=== PATIENT | female | born 1955 | race African-American/Black ===

== ENCOUNTER 2018-10-11 21:41 | Inpatient (IN) | payer OTHER ==
[~2018-10-11] VITALS: Ht 160 cm; Wt 99.8 kg
[2018-10-11] MEDS ORDERED: SODIUM CHLORIDE 0.9% 1,000 ML IV ONE (22:49)
[2018-10-12] VITALS (81 sets, daily range): BP systolic 81–189; BP diastolic 39–104
[2018-10-12 00:09] LABS: BASOPHILS % 0.2 % (0.0-2.0); HEMATOCRIT. 39.3 % (36.0-48.0); HEMOGLOBIN. 12.8 g/dL (12.0-16.0); LYMPHOCYTES % 11.7 % (20.0-50.0); MEAN CORPUSCULAR HEMOGLOBIN 23.9 pg (28.0-32.0); MEAN CORPUSCULAR VOLUME 73.8 fL (81.0-99.0); MEAN PLATELET VOLUME 9.5 fl (7.4-10.4); MONOCYTES % 4.2 % (2.0-8.0); NEUTROPHILS % 83.9 % (40.0-76.0); PLATELET 193 x1000/uL (130-400); RED BLOOD CELL COUNT 5.33 mill/uL (4.2-5.4); RED CELL DISTRIBUTION WIDTH 15.4 % (11.6-14.6)
[2018-10-12 00:11] LABS: CHLORIDE 107 mEq/L (98-107)
[2018-10-12] MEDS ORDERED: NICARDIPINE 100 MG in SODIUM CHLORIDE 0.9% 60 ML IV ONE (01:00)
[2018-10-12] MEDS ORDERED: LEVETIRACETAM 500MG PREMIX 100 ML IV ONE (01:00)
[2018-10-12] MEDS ORDERED: MANNITOL 20% 250 ML IV ONE (01:15)
[2018-10-12 01:22] LABS: INR 1.1; PARTIAL THROMBOPLASTIN TIME 27.5 sec (23.4-31.0); PROTHROMBIN TIME 10.8 sec (9.1-11.1)
[2018-10-12] MEDS ORDERED: MANNITOL 20% 250 ML IV NR (02:00)
[2018-10-12] MEDS ORDERED: LABETALOL 5MG/ML SYR 20 MG/4 ML SYRINGE IV ONE (02:15)
[2018-10-12] MEDS ORDERED: MORPHINE SULFATE 2 MG/ML CPJ (NOT FOR IM USE) IV ONE (02:15)
[2018-10-12] MEDS ORDERED: ONDANSETRON HCL 4MG/2ML INJ IV ONE (02:15)
[2018-10-12] MEDS ORDERED: DIPHENHYDRAMINE 50MG/ML VIAL IV PRN (03:45)
[2018-10-12] MEDS ORDERED: ACETAMINOPHEN 650MG SUPP PR PRN (03:45)
[2018-10-12] MEDS ORDERED: ONDANSETRON HCL 4MG/2ML INJ IV PRN (03:45)
[2018-10-12] MEDS ORDERED: NICARDIPINE 50 MG in SODIUM CHLORIDE 0.9% 230 ML IV PRN (05:15)
[2018-10-12] MEDS ORDERED: DEXT 5%/0.45% NACL 1000ML 1,000 ML IV SCH (06:00)
[2018-10-12] MEDS ORDERED: LEVETIRACETAM 500 MG in SODIUM CHLORIDE 0.9% 100 ML IV SCH (06:00)
[2018-10-12] MEDS: DEXAMETHASONE 4MG/ML 1ML VIAL IV SCH ×4 (06:06→23:26)
[2018-10-12] MEDS: DEXT 5%/LACTATED RINGERS 1,000 ML IV SCH (06:06)
[2018-10-12] MEDS: FAMOTIDINE 20MG/2ML VIAL IV SCH ×2 (08:17→21:08)
[2018-10-12] MEDS: MORPHINE SULFATE 4 MG/ML CPJ (NOT FOR IM USE) IV PRN ×3 (08:20→21:15)
[2018-10-12] MEDS: NITROPRUSSIDE 50 MG in SODIUM CHLORIDE 0.9% 248 ML IV PRN (08:58)
[2018-10-12] MEDS ORDERED: IPRATROPIUM/ALBUTEROL 0.5-3(2.5)MG/3ML NEB HHN PRN (09:15)
[2018-10-12] MEDS: LEVETIRACETAM 500 MG in SODIUM CHLORIDE 0.9% 100 ML IV SCH ×2 (09:34→21:08)
[2018-10-12] MEDS: FLUTICASONE PROPIONATE 50MCG/SPRAY BOTTLE BOTHNSTRLS SCH ×2 (11:34→21:09)
[2018-10-12] MEDS: NYSTATIN POWDER 15GM TOP SCH ×3 (11:43→20:00)
[2018-10-12] MEDS: IPRATROPIUM/ALBUTEROL 0.5-3(2.5)MG/3ML NEB HHN SCH ×3 (12:37→19:52)
[2018-10-12] MEDS: ACETYLCYSTEINE 100MG/ML 10% VIAL 4ML INH SCH (12:37)
[2018-10-13] VITALS (99 sets, daily range): BP systolic 81–175; BP diastolic 42–109
[2018-10-13] MEDS: ACETYLCYSTEINE 100MG/ML 10% VIAL 4ML INH SCH ×3 (00:27→18:30)
[2018-10-13] MEDS: IPRATROPIUM/ALBUTEROL 0.5-3(2.5)MG/3ML NEB HHN SCH ×6 (00:27→20:58)
[2018-10-13] MEDS: DEXT 5%/LACTATED RINGERS 1,000 ML IV SCH (02:26)
[2018-10-13] MEDS: MORPHINE SULFATE 4 MG/ML CPJ (NOT FOR IM USE) IV PRN ×3 (05:20→14:08)
[2018-10-13] MEDS: DEXAMETHASONE 4MG/ML 1ML VIAL IV SCH ×3 (05:20→17:54)
[2018-10-13 05:57] LABS: BASOPHILS % 0.2 % (0.0-2.0); HEMATOCRIT. 38.4 % (36.0-48.0); HEMOGLOBIN. 12.4 g/dL (12.0-16.0); LYMPHOCYTES % 7.6 % (20.0-50.0); MEAN CORPUSCULAR HEMOGLOBIN 23.8 pg (28.0-32.0); MEAN CORPUSCULAR VOLUME 73.9 fL (81.0-99.0); MEAN PLATELET VOLUME 9.7 fl (7.4-10.4); MONOCYTES % 4.1 % (2.0-8.0); NEUTROPHILS % 88.1 % (40.0-76.0); PLATELET 187 x1000/uL (130-400); RED CELL DISTRIBUTION WIDTH 15.3 % (11.6-14.6)
[2018-10-13 06:01] LABS: CHLORIDE 110 mEq/L (98-107)
[2018-10-13] MEDS: NITROPRUSSIDE 50 MG in SODIUM CHLORIDE 0.9% 248 ML IV PRN ×2 (06:38→20:48)
[2018-10-13] MEDS: FLUTICASONE PROPIONATE 50MCG/SPRAY BOTTLE BOTHNSTRLS SCH ×2 (08:51→20:26)
[2018-10-13] MEDS: NYSTATIN POWDER 15GM TOP SCH ×3 (08:52→17:55)
[2018-10-13] MEDS: FAMOTIDINE 20MG/2ML VIAL IV SCH ×2 (08:52→20:26)
[2018-10-13] MEDS: LEVETIRACETAM 500 MG in SODIUM CHLORIDE 0.9% 100 ML IV SCH ×2 (08:53→20:48)
[2018-10-13] MEDS ORDERED: HYDROCODONE/ACETAMINOPHEN 5/325MG TABLET PO PRN (21:15)
[2018-10-13] MEDS: NIFEDIPINE XL 60MG TAB PO SCH (21:50)
[2018-10-14] VITALS (101 sets, daily range): BP systolic 91–193; BP diastolic 38–111
[2018-10-14] MEDS: DEXAMETHASONE 4MG/ML 1ML VIAL IV SCH ×4 (00:10→18:06)
[2018-10-14] MEDS: ACETYLCYSTEINE 100MG/ML 10% VIAL 4ML INH SCH ×3 (00:29→17:06)
[2018-10-14] MEDS: IPRATROPIUM/ALBUTEROL 0.5-3(2.5)MG/3ML NEB HHN SCH ×6 (00:29→20:32)
[2018-10-14] MEDS: MORPHINE SULFATE 4 MG/ML CPJ (NOT FOR IM USE) IV PRN ×3 (01:52→15:53)
[2018-10-14] MEDS: FLUTICASONE PROPIONATE 50MCG/SPRAY BOTTLE BOTHNSTRLS SCH ×2 (07:57→20:58)
[2018-10-14] MEDS: FAMOTIDINE 20MG/2ML VIAL IV SCH ×2 (07:58→20:58)
[2018-10-14] MEDS: NYSTATIN POWDER 15GM TOP SCH ×3 (07:58→18:07)
[2018-10-14] MEDS: LEVETIRACETAM 500 MG in SODIUM CHLORIDE 0.9% 100 ML IV SCH ×2 (07:58→20:58)
[2018-10-14] MEDS: NIFEDIPINE XL 60MG TAB PO SCH (08:14)
[2018-10-14] MEDS: HYDRALAZINE 20MG/ML VIAL IV PRN (08:39)
[2018-10-14] MEDS: NITROPRUSSIDE 50 MG in SODIUM CHLORIDE 0.9% 248 ML IV PRN (13:19)
[2018-10-14] MEDS: HYDRALAZINE HCL 100MG TABLET PO SCH ×2 (14:44→21:08)
[2018-10-14] MEDS: LOSARTAN POTASSIUM 50 MG TABLET PO SCH (14:44)
[2018-10-15] VITALS (45 sets, daily range): BP systolic 94–177; BP diastolic 40–123
[2018-10-15] MEDS: IPRATROPIUM/ALBUTEROL 0.5-3(2.5)MG/3ML NEB HHN SCH ×7 (00:08→23:57)
[2018-10-15] MEDS: ACETYLCYSTEINE 100MG/ML 10% VIAL 4ML INH SCH ×4 (00:08→23:57)
[2018-10-15] MEDS: DEXAMETHASONE 4MG/ML 1ML VIAL IV SCH ×5 (00:17→23:03)
[2018-10-15] MEDS: MORPHINE SULFATE 4 MG/ML CPJ (NOT FOR IM USE) IV PRN (03:11)
[2018-10-15] MEDS: HYDRALAZINE HCL 100MG TABLET PO SCH ×2 (06:00→13:43)
[2018-10-15] MEDS: FAMOTIDINE 20MG/2ML VIAL IV SCH ×2 (08:43→21:27)
[2018-10-15] MEDS: NYSTATIN POWDER 15GM TOP SCH ×3 (08:43→18:11)
[2018-10-15] MEDS: FLUTICASONE PROPIONATE 50MCG/SPRAY BOTTLE BOTHNSTRLS SCH (08:43)
[2018-10-15] MEDS: LOSARTAN POTASSIUM 50 MG TABLET PO SCH (08:44)
[2018-10-15] MEDS: LEVETIRACETAM 500 MG in SODIUM CHLORIDE 0.9% 100 ML IV SCH ×2 (08:44→21:27)
[2018-10-15] MEDS: NIFEDIPINE XL 60MG TAB PO SCH (08:44)
[2018-10-15] MEDS: HYDRALAZINE 20MG/ML VIAL IV PRN (22:56)
[2018-10-16] VITALS (29 sets, daily range): BP systolic 86–167; BP diastolic 58–111
[2018-10-16] MEDS: CLONIDINE 0.2MG TABLET PO PRN ×2 (02:40→18:26)
[2018-10-16] MEDS: IPRATROPIUM/ALBUTEROL 0.5-3(2.5)MG/3ML NEB HHN SCH ×5 (04:06→20:58)
[2018-10-16] MEDS: DEXAMETHASONE 4MG/ML 1ML VIAL IV SCH ×3 (05:54→17:33)
[2018-10-16] MEDS: ACETYLCYSTEINE 100MG/ML 10% VIAL 4ML INH SCH ×3 (08:09→21:01)
[2018-10-16] MEDS: FAMOTIDINE 20MG/2ML VIAL IV SCH ×2 (10:22→20:39)
[2018-10-16] MEDS: LOSARTAN POTASSIUM 50 MG TABLET PO SCH (10:22)
[2018-10-16] MEDS: NIFEDIPINE XL 60MG TAB PO SCH (10:23)
[2018-10-16] MEDS: NYSTATIN POWDER 15GM TOP SCH ×3 (10:23→17:33)
[2018-10-16] MEDS: LEVETIRACETAM 500 MG in SODIUM CHLORIDE 0.9% 100 ML IV SCH ×2 (10:24→20:39)
[2018-10-16] MEDS: HYDRALAZINE HCL 50MG TABLET NG SCH ×2 (13:36→23:00)
[2018-10-17] VITALS (8 sets, daily range): BP systolic 125–189; BP diastolic 72–102
[2018-10-17] MEDS: DEXAMETHASONE 4MG/ML 1ML VIAL IV SCH ×4 (00:35→17:27)
[2018-10-17] MEDS: IPRATROPIUM/ALBUTEROL 0.5-3(2.5)MG/3ML NEB HHN SCH ×5 (00:43→17:37)
[2018-10-17] MEDS: CLONIDINE 0.2MG TABLET PO PRN (04:11)
[2018-10-17] MEDS: HYDRALAZINE HCL 50MG TABLET NG SCH ×3 (06:22→21:16)
[2018-10-17] MEDS: NIFEDIPINE XL 60MG TAB PO SCH (08:50)
[2018-10-17] MEDS: FAMOTIDINE 20MG/2ML VIAL IV SCH ×2 (08:50→21:16)
[2018-10-17] MEDS: LOSARTAN POTASSIUM 50 MG TABLET PO SCH (08:50)
[2018-10-17] MEDS: NYSTATIN POWDER 15GM TOP SCH ×3 (08:54→17:27)
[2018-10-17] MEDS: ACETYLCYSTEINE 100MG/ML 10% VIAL 4ML INH SCH ×2 (09:25→14:00)
[2018-10-17] MEDS: LEVETIRACETAM 500 MG in SODIUM CHLORIDE 0.9% 100 ML IV SCH ×2 (10:53→21:16)
[2018-10-17] MEDS ORDERED: HYDRALAZINE 10 MG in SODIUM CHLORIDE 0.9% 49.5 ML IV PRN (15:15)
[2018-10-17] MEDS ORDERED: TRAV2.5D EACHEYE (19:01)
[2018-10-17] MEDS ORDERED: BRIN8DRO EACHEYE (19:01)
[2018-10-18] VITALS: BP 136/76
[2018-10-18] MEDS: IPRATROPIUM/ALBUTEROL 0.5-3(2.5)MG/3ML NEB HHN SCH ×6 (00:09→20:16)
[2018-10-18] MEDS: DEXAMETHASONE 4MG/ML 1ML VIAL IV SCH ×3 (00:15→12:12)
[2018-10-18] MEDS: CLONIDINE 0.2MG TABLET PO PRN (04:07)
[2018-10-18] MEDS: HYDRALAZINE HCL 50MG TABLET NG SCH ×2 (05:58→13:09)
[2018-10-18 05:59] VITALS: BP 121/68
[2018-10-18 08:00] VITALS: BP 144/81
[2018-10-18] MEDS: NIFEDIPINE XL 60MG TAB PO SCH (09:08)
[2018-10-18] MEDS: LEVETIRACETAM 500 MG in SODIUM CHLORIDE 0.9% 100 ML IV SCH (09:08)
[2018-10-18] MEDS: LOSARTAN POTASSIUM 50 MG TABLET PO SCH ×2 (09:08→18:27)
[2018-10-18] MEDS: NYSTATIN POWDER 15GM TOP SCH ×3 (09:09→17:00)
[2018-10-18] MEDS: FAMOTIDINE 20MG/2ML VIAL IV SCH (09:26)
[2018-10-18 12:00] VITALS: BP 145/81
[2018-10-18 16:00] VITALS: BP 127/73
[2018-10-18] MEDS: LEVETIRACETAM 500MG/5ML CUP PO SCH (18:26)
[2018-10-18 20:00] VITALS: BP 157/94
[2018-10-18] MEDS: FAMOTIDINE 20MG TABLET PO SCH (21:12)
[2018-10-18] MEDS: DEXAMETHASONE 4MG TABLET PO SCH (21:12)
[2018-10-18] MEDS: HYDRALAZINE HCL 25MG TABLET NG SCH (21:20)
[2018-10-18] MEDS: LATANOPROST 0.005% OPHTH DROPS 2.5ML BOTHEYE SCH (23:12)
[2018-10-18] MEDS: BRIMONIDINE 0.2% OPHTH DROPS 5ML BOTHEYE SCH (23:12)
[2018-10-18] MEDS: DORZOLAMIDE 2% OPHTH 10 ML BOTTLE BOTHEYE SCH (23:12)
[2018-10-19] VITALS (7 sets, daily range): BP systolic 126–165; BP diastolic 65–88
[2018-10-19] MEDS: IPRATROPIUM/ALBUTEROL 0.5-3(2.5)MG/3ML NEB HHN SCH ×6 (00:25→21:13)
[2018-10-19] MEDS: HYDRALAZINE HCL 25MG TABLET NG SCH ×3 (05:33→21:42)
[2018-10-19] MEDS: NIFEDIPINE XL 60MG TAB PO SCH (08:34)
[2018-10-19] MEDS: ATENOLOL 50 MG TABLET PO SCH (08:34)
[2018-10-19] MEDS: LEVETIRACETAM 500MG/5ML CUP PO SCH ×2 (08:34→21:24)
[2018-10-19] MEDS: LOSARTAN POTASSIUM 50 MG TABLET PO SCH ×2 (08:34→16:56)
[2018-10-19] MEDS: FAMOTIDINE 20MG TABLET PO SCH ×2 (08:34→21:23)
[2018-10-19] MEDS: BRIMONIDINE 0.2% OPHTH DROPS 5ML BOTHEYE SCH ×2 (08:34→21:23)
[2018-10-19] MEDS: DEXAMETHASONE 4MG TABLET PO SCH (08:34)
[2018-10-19] MEDS: DORZOLAMIDE 2% OPHTH 10 ML BOTTLE BOTHEYE SCH ×2 (08:34→21:23)
[2018-10-19] MEDS: NYSTATIN POWDER 15GM TOP SCH ×3 (08:35→16:56)
[2018-10-19] MEDS: ATORVASTATIN CALCIUM 10MG TABLET PO SCH (21:23)
[2018-10-19] MEDS: LATANOPROST 0.005% OPHTH DROPS 2.5ML BOTHEYE SCH (21:24)
[2018-10-20] VITALS: BP 136/81
[2018-10-20] MEDS: IPRATROPIUM/ALBUTEROL 0.5-3(2.5)MG/3ML NEB HHN SCH ×6 (00:50→21:37)
[2018-10-20 04:00] VITALS: BP 156/80
[2018-10-20] MEDS: HYDRALAZINE HCL 25MG TABLET NG SCH ×3 (07:01→21:15)
[2018-10-20 08:00] VITALS: BP 138/81
[2018-10-20] MEDS: LOSARTAN POTASSIUM 50 MG TABLET PO SCH ×2 (08:54→18:30)
[2018-10-20] MEDS: DORZOLAMIDE 2% OPHTH 10 ML BOTTLE BOTHEYE SCH ×2 (08:54→21:16)
[2018-10-20] MEDS: BRIMONIDINE 0.2% OPHTH DROPS 5ML BOTHEYE SCH ×2 (08:54→21:16)
[2018-10-20] MEDS: LEVETIRACETAM 500MG/5ML CUP PO SCH ×2 (08:54→21:15)
[2018-10-20] MEDS: FAMOTIDINE 20MG TABLET PO SCH ×2 (08:55→21:15)
[2018-10-20] MEDS: NIFEDIPINE XL 60MG TAB PO SCH (08:55)
[2018-10-20] MEDS: ATENOLOL 50 MG TABLET PO SCH (08:55)
[2018-10-20] MEDS: NYSTATIN POWDER 15GM TOP SCH ×2 (08:57→18:31)
[2018-10-20 09:59] LABS: BASOPHILS % 0.2 % (0.0-2.0); EOSINOPHILS % 0.1 % (0.0-5.0); HEMATOCRIT. 42.6 % (36.0-48.0); HEMOGLOBIN. 13.6 g/dL (12.0-16.0); LYMPHOCYTES % 13.1 % (20.0-50.0); MEAN CORPUSCULAR HEMOGLOBIN 23.7 pg (28.0-32.0); MEAN CORPUSCULAR VOLUME 74.1 fL (81.0-99.0); MEAN PLATELET VOLUME 8.4 fl (7.4-10.4); MONOCYTES % 6.7 % (2.0-8.0); NEUTROPHILS % 79.9 % (40.0-76.0); PLATELET 232 x1000/uL (130-400); RED BLOOD CELL COUNT 5.74 mill/uL (4.2-5.4); RED CELL DISTRIBUTION WIDTH 15.3 % (11.6-14.6)
[2018-10-20 12:00] VITALS: BP 127/85
[2018-10-20 15:18] LABS: CHLORIDE 103 mEq/L (98-107)
[2018-10-20 16:00] VITALS: BP 124/83
[2018-10-20 20:00] VITALS: BP 142/71
[2018-10-20] MEDS: ATORVASTATIN CALCIUM 10MG TABLET PO SCH (21:15)
[2018-10-20] MEDS: LATANOPROST 0.005% OPHTH DROPS 2.5ML BOTHEYE SCH (21:16)
[2018-10-21] VITALS: BP 139/77
[2018-10-21] MEDS: IPRATROPIUM/ALBUTEROL 0.5-3(2.5)MG/3ML NEB HHN SCH ×6 (01:16→20:22)
[2018-10-21 04:00] VITALS: BP 143/74
[2018-10-21] MEDS: HYDRALAZINE HCL 25MG TABLET NG SCH ×3 (06:19→21:47)
[2018-10-21 08:00] VITALS: BP 137/68
[2018-10-21] MEDS: NIFEDIPINE XL 60MG TAB PO SCH (08:34)
[2018-10-21] MEDS: FAMOTIDINE 20MG TABLET PO SCH ×2 (08:34→20:57)
[2018-10-21] MEDS: DORZOLAMIDE 2% OPHTH 10 ML BOTTLE BOTHEYE SCH ×2 (08:34→20:56)
[2018-10-21] MEDS: ATENOLOL 50 MG TABLET PO SCH (08:34)
[2018-10-21] MEDS: LOSARTAN POTASSIUM 50 MG TABLET PO SCH ×2 (08:34→17:00)
[2018-10-21] MEDS: LEVETIRACETAM 500MG/5ML CUP PO SCH ×2 (08:34→20:56)
[2018-10-21] MEDS: NYSTATIN POWDER 15GM TOP SCH ×3 (08:35→17:49)
[2018-10-21] MEDS: BRIMONIDINE 0.2% OPHTH DROPS 5ML BOTHEYE SCH ×2 (08:35→20:56)
[2018-10-21 12:00] VITALS: BP 104/59
[2018-10-21 16:00] VITALS: BP 107/55
[2018-10-21 20:00] VITALS: BP 141/73
[2018-10-21] MEDS: LATANOPROST 0.005% OPHTH DROPS 2.5ML BOTHEYE SCH (20:56)
[2018-10-21] MEDS: ATORVASTATIN CALCIUM 10MG TABLET PO SCH (20:56)
[2018-10-22] VITALS: BP 126/64
[2018-10-22] MEDS: IPRATROPIUM/ALBUTEROL 0.5-3(2.5)MG/3ML NEB HHN SCH ×7 (00:06→23:32)
[2018-10-22 04:00] VITALS: BP 133/66
[2018-10-22] MEDS: HYDRALAZINE HCL 25MG TABLET NG SCH ×3 (06:09→23:01)
[2018-10-22 08:00] VITALS: BP 139/72
[2018-10-22] MEDS: BRIMONIDINE 0.2% OPHTH DROPS 5ML BOTHEYE SCH ×2 (08:42→20:10)
[2018-10-22] MEDS: LEVETIRACETAM 500MG/5ML CUP PO SCH ×2 (08:42→20:11)
[2018-10-22] MEDS: NIFEDIPINE XL 60MG TAB PO SCH (08:42)
[2018-10-22] MEDS: FAMOTIDINE 20MG TABLET PO SCH ×2 (08:42→20:11)
[2018-10-22] MEDS: LOSARTAN POTASSIUM 50 MG TABLET PO SCH ×2 (08:42→17:00)
[2018-10-22] MEDS: DORZOLAMIDE 2% OPHTH 10 ML BOTTLE BOTHEYE SCH ×2 (08:42→20:10)
[2018-10-22] MEDS: ATENOLOL 50 MG TABLET PO SCH (08:43)
[2018-10-22] MEDS: NYSTATIN POWDER 15GM TOP SCH (08:43)
[2018-10-22 12:00] VITALS: BP 107/61
[2018-10-22 16:00] VITALS: BP 109/77
[2018-10-22 20:00] VITALS: BP 151/88
[2018-10-22] MEDS: LATANOPROST 0.005% OPHTH DROPS 2.5ML BOTHEYE SCH (20:10)
[2018-10-22] MEDS: ATORVASTATIN CALCIUM 10MG TABLET PO SCH (20:11)
[2018-10-23] VITALS: BP 123/86
[2018-10-23] MEDS: IPRATROPIUM/ALBUTEROL 0.5-3(2.5)MG/3ML NEB HHN SCH ×4 (04:53→19:36)
[2018-10-23] MEDS: HYDRALAZINE HCL 25MG TABLET NG SCH ×3 (05:33→21:59)
[2018-10-23 08:00] VITALS: BP 110/74
[2018-10-23] MEDS: LOSARTAN POTASSIUM 50 MG TABLET PO SCH ×2 (08:33→17:00)
[2018-10-23] MEDS: LEVETIRACETAM 500MG/5ML CUP PO SCH ×2 (08:33→20:54)
[2018-10-23] MEDS: DORZOLAMIDE 2% OPHTH 10 ML BOTTLE BOTHEYE SCH ×2 (08:33→20:54)
[2018-10-23] MEDS: BRIMONIDINE 0.2% OPHTH DROPS 5ML BOTHEYE SCH ×2 (08:33→20:54)
[2018-10-23] MEDS: ATENOLOL 50 MG TABLET PO SCH (08:34)
[2018-10-23] MEDS: NIFEDIPINE XL 60MG TAB PO SCH (08:34)
[2018-10-23] MEDS: FAMOTIDINE 20MG TABLET PO SCH ×2 (08:34→20:54)
[2018-10-23 12:00] VITALS: BP 131/70
[2018-10-23] MEDS: CLONIDINE 0.2MG TABLET PO PRN (14:10)
[2018-10-23 16:00] VITALS: BP 109/62
[2018-10-23 20:00] VITALS: BP 133/70
[2018-10-23] MEDS: LATANOPROST 0.005% OPHTH DROPS 2.5ML BOTHEYE SCH (20:54)
[2018-10-23] MEDS: ATORVASTATIN CALCIUM 10MG TABLET PO SCH (20:54)
[2018-10-24] VITALS: BP 125/60
[2018-10-24] MEDS: IPRATROPIUM/ALBUTEROL 0.5-3(2.5)MG/3ML NEB HHN SCH ×5 (02:36→19:40)
[2018-10-24 04:00] VITALS: BP 164/68
[2018-10-24] MEDS: HYDRALAZINE HCL 25MG TABLET NG SCH ×3 (05:24→22:10)
[2018-10-24 08:01] VITALS: BP 148/77
[2018-10-24] MEDS: LOSARTAN POTASSIUM 50 MG TABLET PO SCH ×2 (09:01→17:00)
[2018-10-24] MEDS: DORZOLAMIDE 2% OPHTH 10 ML BOTTLE BOTHEYE SCH ×2 (09:01→20:58)
[2018-10-24] MEDS: ATENOLOL 50 MG TABLET PO SCH (09:01)
[2018-10-24] MEDS: LEVETIRACETAM 500MG/5ML CUP PO SCH ×2 (09:01→20:58)
[2018-10-24] MEDS: BRIMONIDINE 0.2% OPHTH DROPS 5ML BOTHEYE SCH ×2 (09:01→20:58)
[2018-10-24] MEDS: NIFEDIPINE XL 60MG TAB PO SCH (09:02)
[2018-10-24] MEDS: FAMOTIDINE 20MG TABLET PO SCH ×2 (09:02→20:58)
[2018-10-24 12:00] VITALS: BP 107/58
[2018-10-24 16:00] VITALS: BP 148/80
[2018-10-24 20:00] VITALS: BP 105/62
[2018-10-24] MEDS: LATANOPROST 0.005% OPHTH DROPS 2.5ML BOTHEYE SCH (20:58)
[2018-10-24] MEDS: ATORVASTATIN CALCIUM 10MG TABLET PO SCH (20:58)
[2018-10-25] VITALS: BP 96/74
[2018-10-25] MEDS: IPRATROPIUM/ALBUTEROL 0.5-3(2.5)MG/3ML NEB HHN SCH ×6 (00:10→21:07)
[2018-10-25 04:00] VITALS: BP 129/90
[2018-10-25] MEDS: HYDRALAZINE HCL 25MG TABLET NG SCH (05:32)
[2018-10-25 08:00] VITALS: BP 165/63
[2018-10-25] MEDS: NIFEDIPINE XL 60MG TAB PO SCH (09:00)
[2018-10-25] MEDS: FAMOTIDINE 20MG TABLET PO SCH ×2 (10:22→21:48)
[2018-10-25] MEDS: LEVETIRACETAM 500MG/5ML CUP PO SCH ×2 (10:22→21:48)
[2018-10-25] MEDS: ATENOLOL 50 MG TABLET PO SCH (10:22)
[2018-10-25] MEDS: BRIMONIDINE 0.2% OPHTH DROPS 5ML BOTHEYE SCH ×2 (10:23→21:50)
[2018-10-25] MEDS: DORZOLAMIDE 2% OPHTH 10 ML BOTTLE BOTHEYE SCH ×2 (10:23→21:49)
[2018-10-25] MEDS: LOSARTAN POTASSIUM 50 MG TABLET PO SCH (10:23)
[2018-10-25 12:00] VITALS: BP 127/70
[2018-10-25 16:00] VITALS: BP 145/74
[2018-10-25 20:00] VITALS: BP 125/78
[2018-10-25] MEDS: ATORVASTATIN CALCIUM 10MG TABLET PO SCH (21:48)
[2018-10-25] MEDS: LATANOPROST 0.005% OPHTH DROPS 2.5ML BOTHEYE SCH (21:50)
[2018-10-26] VITALS: BP 147/76
[2018-10-26] MEDS: IPRATROPIUM/ALBUTEROL 0.5-3(2.5)MG/3ML NEB HHN SCH ×6 (01:16→20:23)
[2018-10-26 04:00] VITALS: BP 114/74
[2018-10-26 08:00] VITALS: BP 131/63
[2018-10-26] MEDS: ATENOLOL 50 MG TABLET PO SCH (09:00)
[2018-10-26] MEDS: LOSARTAN POTASSIUM 50 MG TABLET PO SCH ×2 (09:00→17:26)
[2018-10-26] MEDS: DORZOLAMIDE 2% OPHTH 10 ML BOTTLE BOTHEYE SCH ×2 (09:45→22:00)
[2018-10-26] MEDS: BRIMONIDINE 0.2% OPHTH DROPS 5ML BOTHEYE SCH ×2 (09:46→22:00)
[2018-10-26] MEDS: FAMOTIDINE 20MG TABLET PO SCH ×2 (09:46→21:59)
[2018-10-26] MEDS: NIFEDIPINE XL 60MG TAB PO SCH (09:46)
[2018-10-26] MEDS: LEVETIRACETAM 500MG/5ML CUP PO SCH ×2 (09:54→21:59)
[2018-10-26 12:00] VITALS: BP 122/70
[2018-10-26] MEDS: HYDRALAZINE HCL 25MG TABLET NG SCH ×2 (14:00→22:00)
[2018-10-26 16:00] VITALS: BP 119/73
[2018-10-26 20:00] VITALS: BP 137/72
[2018-10-26] MEDS: ATORVASTATIN CALCIUM 10MG TABLET PO SCH (21:59)
[2018-10-26] MEDS: LATANOPROST 0.005% OPHTH DROPS 2.5ML BOTHEYE SCH (22:00)
[2018-10-27] VITALS: BP 111/56
[2018-10-27] MEDS: IPRATROPIUM/ALBUTEROL 0.5-3(2.5)MG/3ML NEB HHN SCH ×5 (00:31→21:41)
[2018-10-27 04:00] VITALS: BP 135/59
[2018-10-27] MEDS: HYDRALAZINE HCL 25MG TABLET NG SCH ×3 (05:39→21:28)
[2018-10-27 08:00] VITALS: BP 128/66
[2018-10-27] MEDS: LEVETIRACETAM 500MG/5ML CUP PO SCH ×2 (09:24→21:28)
[2018-10-27] MEDS: LOSARTAN POTASSIUM 50 MG TABLET PO SCH (09:25)
[2018-10-27] MEDS: FAMOTIDINE 20MG TABLET PO SCH ×2 (09:25→21:28)
[2018-10-27] MEDS: NIFEDIPINE XL 60MG TAB PO SCH (09:26)
[2018-10-27] MEDS: ATENOLOL 50 MG TABLET PO SCH (09:27)
[2018-10-27] MEDS: BRIMONIDINE 0.2% OPHTH DROPS 5ML BOTHEYE SCH ×2 (09:29→21:27)
[2018-10-27] MEDS: DORZOLAMIDE 2% OPHTH 10 ML BOTTLE BOTHEYE SCH ×2 (09:30→21:29)
[2018-10-27 12:00] VITALS: BP 122/69
[2018-10-27 16:00] VITALS: BP 111/46
[2018-10-27 20:00] VITALS: BP 125/69
[2018-10-27] MEDS: ATORVASTATIN CALCIUM 10MG TABLET PO SCH (21:28)
[2018-10-27] MEDS: LATANOPROST 0.005% OPHTH DROPS 2.5ML BOTHEYE SCH (21:28)
[2018-10-28] VITALS (7 sets, daily range): BP systolic 112–135; BP diastolic 43–80
[2018-10-28] MEDS: IPRATROPIUM/ALBUTEROL 0.5-3(2.5)MG/3ML NEB HHN SCH ×6 (01:09→20:53)
[2018-10-28] MEDS: HYDRALAZINE HCL 25MG TABLET NG SCH ×3 (05:44→22:00)
[2018-10-28] MEDS: FAMOTIDINE 20MG TABLET PO SCH ×2 (08:33→21:12)
[2018-10-28] MEDS: LEVETIRACETAM 500MG/5ML CUP PO SCH ×2 (08:33→21:12)
[2018-10-28] MEDS: LOSARTAN POTASSIUM 50 MG TABLET PO SCH ×2 (08:33→18:32)
[2018-10-28] MEDS: DORZOLAMIDE 2% OPHTH 10 ML BOTTLE BOTHEYE SCH ×2 (08:34→21:32)
[2018-10-28] MEDS: BRIMONIDINE 0.2% OPHTH DROPS 5ML BOTHEYE SCH ×2 (08:34→21:32)
[2018-10-28] MEDS: ATENOLOL 50 MG TABLET PO SCH (08:35)
[2018-10-28] MEDS: NIFEDIPINE XL 60MG TAB PO SCH (08:36)
[2018-10-28] MEDS: DEXAMETHASONE 4MG TABLET PO SCH (18:32)
[2018-10-28] MEDS: ATORVASTATIN CALCIUM 10MG TABLET PO SCH (21:12)
[2018-10-28] MEDS: LATANOPROST 0.005% OPHTH DROPS 2.5ML BOTHEYE SCH (21:32)
[2018-10-29] VITALS: BP 121/67
[2018-10-29] MEDS: DEXAMETHASONE 4MG TABLET PO SCH ×3 (00:43→17:27)
[2018-10-29] MEDS: IPRATROPIUM/ALBUTEROL 0.5-3(2.5)MG/3ML NEB HHN SCH ×6 (01:01→22:33)
[2018-10-29 04:00] VITALS: BP 118/60
[2018-10-29] MEDS: HYDRALAZINE HCL 25MG TABLET NG SCH ×3 (05:23→21:30)
[2018-10-29 08:00] VITALS: BP 117/60
[2018-10-29] MEDS: FAMOTIDINE 20MG TABLET PO SCH ×2 (08:45→21:15)
[2018-10-29] MEDS: LOSARTAN POTASSIUM 50 MG TABLET PO SCH ×2 (08:45→17:27)
[2018-10-29] MEDS: LEVETIRACETAM 500MG/5ML CUP PO SCH ×2 (08:45→21:16)
[2018-10-29] MEDS: NIFEDIPINE XL 60MG TAB PO SCH (08:45)
[2018-10-29] MEDS: ATENOLOL 50 MG TABLET PO SCH (08:45)
[2018-10-29] MEDS: DORZOLAMIDE 2% OPHTH 10 ML BOTTLE BOTHEYE SCH ×2 (08:46→21:16)
[2018-10-29] MEDS: BRIMONIDINE 0.2% OPHTH DROPS 5ML BOTHEYE SCH ×2 (08:46→21:16)
[2018-10-29 12:00] VITALS: BP 128/68
[2018-10-29] MEDS ORDERED: ACETAMINOPHEN 325MG TABLET PO PRN (15:15)
[2018-10-29 16:00] VITALS: BP 143/78
[2018-10-29 20:00] VITALS: BP 132/76
[2018-10-29] MEDS: ATORVASTATIN CALCIUM 10MG TABLET PO SCH (21:15)
[2018-10-29] MEDS: LATANOPROST 0.005% OPHTH DROPS 2.5ML BOTHEYE SCH (21:16)
[2018-10-30] VITALS: BP 137/80
[2018-10-30] MEDS: IPRATROPIUM/ALBUTEROL 0.5-3(2.5)MG/3ML NEB HHN SCH ×3 (01:31→08:14)
[2018-10-30 04:00] VITALS: BP 125/70
[2018-10-30] MEDS: HYDRALAZINE HCL 25MG TABLET NG SCH (05:34)
[2018-10-30] MEDS: DEXAMETHASONE 4MG TABLET PO SCH (05:34)
[2018-10-30 08:00] VITALS: BP 118/69
[2018-10-30] MEDS: ATENOLOL 50 MG TABLET PO SCH (08:10)
[2018-10-30] MEDS: LOSARTAN POTASSIUM 50 MG TABLET PO SCH (08:10)
[2018-10-30] MEDS: FAMOTIDINE 20MG TABLET PO SCH (08:10)
[2018-10-30] MEDS: BRIMONIDINE 0.2% OPHTH DROPS 5ML BOTHEYE SCH (08:11)
[2018-10-30] MEDS: DORZOLAMIDE 2% OPHTH 10 ML BOTTLE BOTHEYE SCH (08:11)
[2018-10-30] MEDS: LEVETIRACETAM 500MG/5ML CUP PO SCH (08:33)
[2018-10-30] MEDS: NIFEDIPINE XL 60MG TAB PO SCH (09:00)
[2018-10-30 11:51] VITALS: BP 118/69
[2018-10-30 12:00] VITALS: BP 141/79
== END 2018-10-30 13:52 | DRG 64 ==
LOC: ER 22:33 → MICUNO 10-12 01:17 → EDBEDREQ 10-12 01:30 → EDBEDREQTM 10-12 01:30 → ENRESERV 10-12 03:14 → MICUSO 10-13 22:17 → 6EST 10-16 14:07
PROVIDERS: ADMIT Internal Medicine; ATTEND Internal Medicine
DX: I61.1 Nontraumatic intracerebral hemorrhage in hemisphere, cortical (principal); G93.6 Cerebral edema; J98.11 Atelectasis; G81.91 Hemiplegia, unspecified affecting right dominant side; I61.5 Nontraumatic intracerebral hemorrhage, intraventricular; I10 Essential (primary) hypertension; E66.9 Obesity, unspecified; I89.0 Lymphedema, not elsewhere classified; R26.9 Unspecified abnormalities of gait and mobility; J00 Acute nasopharyngitis [common cold]; H40.9 Unspecified glaucoma; R32 Unspecified urinary incontinence; S00.03XA Contusion of scalp, initial encounter; Z75.1 Person awaiting admission to adequate facility elsewhere; Z82.49 Family history of ischemic heart disease and other diseases of the circulatory system; Z79.899 Other long term (current) drug therapy; Z68.39 Body mass index [BMI] 39.0-39.9, adult
CPT/HCPCS: 36415; 70551; 71045; 80048; 80061; 82962; 83880; 84134; 84484; 86850; 86900; 92523; 92610; 93005; 93306; 93970; 94640; 96361; 96365; 96366; 96375; 97110; 97112; 97163; 97166; 97530; 97535; 99291; J0360; J1100; J1953; J2270; J2405; J3490; J7030; J7040; J7050; J7121; J7608; J7620; J8540; A4315

== ENCOUNTER 2023-01-10 10:23 | Emergency (ER) | payer MEDICAID, MEDICARE, OTHER ==
[~2023-01-10] VITALS: Ht 170.2 cm; Wt 113.0 kg
[~2023-01-10 10:23] MED LIST: BRIN8DRO EACHEYE; TRAV2.5D9 EACHEYE
[2023-01-10] MEDS ORDERED: LEVETIRACETAM 500MG TABLET PO ONE ×2 (10:45→17:30)
[2023-01-10 13:03] LABS: BASOPHILS % 0.3 % (0.0-2.0); EOSINOPHILS % 0.2 % (0.0-5.0); HEMATOCRIT. 38.5 % (36.0-48.0); HEMOGLOBIN. 12.4 g/dL (12.0-16.0); LYMPHOCYTES % 7.5 % (20.0-50.0); MEAN CORPUSCULAR HEMOGLOBIN 23.8 pg (28.0-32.0); MEAN CORPUSCULAR VOLUME 73.9 fL (81.0-99.0); MEAN PLATELET VOLUME 8.4 fl (7.4-10.4); MONOCYTES % 12.3 % (2.0-8.0); NEUTROPHILS % 79.7 % (40.0-76.0); PLATELET 219 x1000/uL (130-400); RED CELL DISTRIBUTION WIDTH 14.8 % (11.6-14.6)
[2023-01-10 13:08] LABS: CHLORIDE 104 mEq/L (98-107)
[2023-01-10 19:18] VITALS: BP 158/95
== END 2023-01-10 19:43 ==
LOC: ER 10:47
DX: R56.9 Unspecified convulsions (principal); I10 Essential (primary) hypertension; Z86.73 Personal history of transient ischemic attack (TIA), and cerebral infarction without residual deficits
CPT/HCPCS: 36415; 80053; 85025; 99285

== ENCOUNTER 2023-07-02 07:57 | Emergency (ER) | payer MEDICAID, OTHER ==
[~2023-07-02] VITALS: Ht 167.6 cm; Wt 100.0 kg
[2023-07-02 08:03] VITALS: O2SAT 100
[2023-07-02] MEDS ORDERED: LORAZEPAM 2MG/ML CPJ IV ONE (08:30)
[2023-07-02 10:10] LABS: BASOPHILS % 0.2 % (0.0-2.0); DIFFERENTIAL COMMENT 0; EOSINOPHILS % 0.4 % (0.0-5.0); HEMOGLOBIN. 11.9 g/dL (12.0-16.0); LYMPHOCYTES % 15.9 % (20.0-50.0); MEAN CORPUSCULAR HEMOGLOBIN 24.1 pg (28.0-32.0); MEAN CORPUSCULAR HGB CONC 32.2 g/dL (31.0-37.0); MEAN CORPUSCULAR VOLUME 74.9 fL (81.0-99.0); MONOCYTES % 3.6 % (2.0-8.0); NEUTROPHILS % 79.9 % (40.0-76.0); PLATELET 270 x1000/uL (130-400); RED BLOOD CELL COUNT 4.94 mill/uL (4.2-5.4); RED CELL DISTRIBUTION WIDTH 15.3 % (11.6-14.6); WHITE BLOOD COUNT 9.7 x1000/uL (4.5-11.0)
[2023-07-02 10:29] LABS: ALANINE AMINOTRANSFERASE 29 IU/L (13-61); ALBUMIN 3.6 g/dL (3.4-5.0); ASPARTATE AMINOTRANSFERASE 32 IU/L (15-37); BILIRUBIN TOTAL 0.7 mg/dL (0.1-1.0); CALCIUM 8.6 mg/dL (8.5-10.1); CARBON DIOXIDE 20 mEq/L (21-32); CHLORIDE 107 mEq/L (98-107); CREATININE 0.9 mg/dL (0.6-1.3); GLUCOSE 140 mg/dL (70-105); INDEX HEMOLYSI 4 (1-3); INDEX ICTERIC 1 (1-4); INDEX LIPEMIC 1 (1-3); PROTEIN TOTAL 8.5 g/dL (6.0-8.3); SODIUM 142 mEq/L (136-145); TROPONIN I HIGH SENSITIVITY 33 ng/L (<54); UREA NITROGEN BLOOD 17 mg/dL (7-21)
[2023-07-02 10:30] LABS: BG BASE EXCESS -2.6 mmol/L (-2.0-2.0); BG CARBOXYHEMOGLOBIN 0.1 % (0.5-1.5); BG DEOXYHEMOGLOBIN 13.2 % (0.0-5.0); BG FRACTION INSPIRED OXYGEN 21; BG HCO3 ACT 22.1 mmol/L (22.0-26.0); BG METHEMOGLOBIN 0.3 % (0.0-1.5); BG OXYGEN SATURATION 86.7 % (92.0-98.5); BG OXYHEMOGLOBIN 86.4 % (94.0-97.0); BG PCO2 37.9 mmHg (35.0-45.0); BG PH 7.383 (7.350-7.450); BG PO2 53.7 mmHg (75.0-100.0); BG SAMPLE SITE RIGHT RADIAL; BG TOTAL HEMOGLOBIN 12.6 g/dL (12.0-18.0); BG VENT MODE ROOM AIR
[2023-07-02] MEDS ORDERED: LEVETIRACETAM 1000MG PREMIX 100 ML IV ONE (10:30)
[2023-07-02 10:42] LABS: POTASSIUM 4.3 mEq/L (3.5-5.1)
[2023-07-02 12:10] LABS: PROTHROMBIN TIME 10.7 sec (9.6-11.0)
[2023-07-02 18:44] VITALS: BP 180/80; PULSE 104; RESP 18; TEMP 98
== END 2023-07-02 18:46 | disposition home or self-care (01) ==
LOC: ER 07:57
DX: R56.9 Unspecified convulsions (principal); I10 Essential (primary) hypertension; Z86.73 Personal history of transient ischemic attack (TIA), and cerebral infarction without residual deficits
CPT/HCPCS: 99285; 96365; 70450; 71045; 96366; 96375; 80053; 85025; 85610; 84484; 36415; 82805; 82375; 93005; 36600; J1953; J2060

== ENCOUNTER 2023-08-04 09:47 | Emergency (ER) | payer MEDICARE, MEDICAID ==
[~2023-08-04] VITALS: Ht 162.6 cm; Wt 100.0 kg
[2023-08-04 09:52] VITALS: O2SAT 97
[2023-08-04] MEDS ORDERED: MORPHINE SULFATE 4 MG/ML CPJ (NOT FOR IM USE) IV STA (10:16)
[2023-08-04] MEDS ORDERED: ACETAMINOPHEN 325MG TABLET PO ONE (10:30)
[2023-08-04] MEDS ORDERED: NIFEDIPINE XL 60MG TAB PO ONE (10:30)
[2023-08-04 10:38] LABS: BASOPHILS % 0.5 % (0.0-2.0); DIFFERENTIAL COMMENT 0; EOSINOPHILS % 0.7 % (0.0-5.0); HEMATOCRIT. 39.4 % (36.0-48.0); HEMOGLOBIN. 12.2 g/dL (12.0-16.0); LYMPHOCYTES % 27.2 % (20.0-50.0); MEAN CORPUSCULAR HEMOGLOBIN 22.7 pg (28.0-32.0); MEAN CORPUSCULAR HGB CONC 30.9 g/dL (31.0-37.0); MEAN CORPUSCULAR VOLUME 73.6 fL (81.0-99.0); MONOCYTES % 7.3 % (2.0-8.0); NEUTROPHILS % 64.3 % (40.0-76.0); PLATELET 225 x1000/uL (130-400); RED BLOOD CELL COUNT 5.35 mill/uL (4.2-5.4); RED CELL DISTRIBUTION WIDTH 14.8 % (11.6-14.6); WHITE BLOOD COUNT 5.1 x1000/uL (4.5-11.0)
[2023-08-04 10:49] LABS: PROTHROMBIN TIME 10.6 sec (9.6-11.0)
[2023-08-04 10:50] LABS: CHLORIDE 108 mEq/L (98-107); INDEX HEMOLYSI 1 (1-3); INDEX ICTERIC 1 (1-4); INDEX LIPEMIC 1 (1-3); POTASSIUM 3.5 mEq/L (3.5-5.1); SODIUM 140 mEq/L (136-145)
[2023-08-04 11:01] LABS: ALANINE AMINOTRANSFERASE 24 IU/L (13-61); ALBUMIN 3.7 g/dL (3.4-5.0); ASPARTATE AMINOTRANSFERASE 18 IU/L (15-37); BILIRUBIN TOTAL 0.9 mg/dL (0.1-1.0); CALCIUM 8.8 mg/dL (8.5-10.1); CARBON DIOXIDE 28 mEq/L (21-32); CREATININE 0.9 mg/dL (0.6-1.3); GLUCOSE 106 mg/dL (70-105); NT PRO B-TYPE NATRIURETIC PEP 122 pg/mL (5-125); PROTEIN TOTAL 8.7 g/dL (6.0-8.3); TROPONIN I HIGH SENSITIVITY 12 ng/L (<54); UREA NITROGEN BLOOD 16 mg/dL (7-21)
[2023-08-04 12:54] LABS: TROPONIN I HIGH SENSITIVITY 15 ng/L (<54)
[2023-08-04] MEDS ORDERED: NIFE-32 MT (13:18)
[2023-08-04] MEDS ORDERED: HYDRALAZINE HCL 50MG TABLET PO ONE (15:45)
[2023-08-04 16:00] VITALS: BP 159/85; PULSE 77; RESP 16; TEMP 98.5
== END 2023-08-04 15:22 | disposition home or self-care (01) ==
LOC: ER 09:47
DX: R51.9 Headache, unspecified (principal); I10 Essential (primary) hypertension; R07.9 Chest pain, unspecified; F19.90 Other psychoactive substance use, unspecified, uncomplicated; Z86.73 Personal history of transient ischemic attack (TIA), and cerebral infarction without residual deficits
CPT/HCPCS: 99285; 96374; 70450; 71045; 80053; 83880; 85025; 85610; 84484; 36415; 93005; J2270

== ENCOUNTER 2025-06-02 09:43 | Emergency (ER) | payer OTHER, MEDICAID ==
[~2025-06-02] VITALS: Ht 165.1 cm; Wt 97.0 kg
[~2025-06-02 09:43] MED LIST changes: -BRIN8DRO EACHEYE; +FAMO20TA8 PO; +FURO20TA4 PO; +LEVE500T19 PO; +NIFE-32 PO; -TRAV2.5D9 EACHEYE
[2025-06-02 09:50] VITALS: O2SAT 99
[2025-06-02 10:29] LABS: BASOPHILS % 0.7 % (0.0-2.0); EOSINOPHILS % 1.1 % (0.0-5.0); HEMATOCRIT. 37.9 % (36.0-48.0); HEMOGLOBIN. 11.9 g/dL (12.0-16.0); LYMPHOCYTES % 27.0 % (20.0-50.0); MEAN PLATELET VOLUME 8.9 fl (7.4-10.4); MONOCYTES % 8.5 % (2.0-8.0); NEUTROPHILS % 62.7 % (40.0-76.0); PLATELET 222 x1000/uL (130-400); RED BLOOD CELL COUNT 5.26 mill/uL (4.2-5.4); RED CELL DISTRIBUTION WIDTH 15.4 % (11.6-14.6)
[2025-06-02 10:49] LABS: CREATININE 0.9 mg/dL (0.6-1.0); UREA NITROGEN BLOOD 14 mg/dL (9-23)
[2025-06-02 10:50] LABS: TROPONIN I HIGH SENSITIVITY 9 ng/L (3.0-34)
[2025-06-02 13:30] LABS: TROPONIN I HIGH SENSITIVITY 10 ng/L (3.0-34)
[2025-06-02 13:38] VITALS: BP 164/72; PULSE 67; RESP 13; TEMP 37.1; O2SAT 99
== END 2025-06-02 14:24 | disposition short-term general hospital (02) ==
LOC: ER 09:43 → CANBEDREQ 12:01 → ER 14:24
DX: R07.89 Other chest pain (principal); E78.00 Pure hypercholesterolemia, unspecified; I11.0 Hypertensive heart disease with heart failure; I50.9 Heart failure, unspecified; K21.9 Gastro-esophageal reflux disease without esophagitis; Z79.899 Other long term (current) drug therapy; Z86.73 Personal history of transient ischemic attack (TIA), and cerebral infarction without residual deficits
CPT/HCPCS: 36415; 71045; 80048; 83880; 84484; 85025; 93005; 99285